=== PATIENT | male | born 1990 ===

== ENCOUNTER 2017-02-21 12:56 | Emergency (ER) | payer BC ==
[2017-02-21 13:33] VITALS: BP 124/81
--- NOTE | 2017-02-21 13:34 | UC ---
Throat Pain/Nasal Jj HPI - HPI Summary HPI Summary: 26 YEAR OLD MALE PRESENTS WITH COMPLAINS OF COUGH, POST NASAL DRIP AND SORE THROAT. - History of Current Complaint Chief Complaint: UCRespiratory Stated Complaint: COUGH, FEVER, SORE THROAT, AND LACK OF APPETITE Time Seen by Provider: 02/21/17 13:34 Hx Obtained From: Patient Onset/Duration: Gradual Onset Severity: Moderate - Allergies/Home Medications Allergies/Adverse Reactions: Allergies Allergy/AdvReac Type Severity Reaction Status Date / Time No Known Allergies Allergy Verified 07/24/14 10:47 PMH/Surg Hx/FS Hx/Imm Hx Previously Healthy: Yes - Surgical History Surgical History: Yes Surgery Procedure, Year, and Place: wisdom teeth - Social History Alcohol Use: Rare Substance Use Type: None Smoking Status (MU): Never Smoked Tobacco Review of Systems Constitutional: Negative Skin: Negative Eyes: Negative ENT: Sore Throat, Ear Ache, Nasal Discharge, Sinus Congestion, Sinus Pain/ Tenderness Respiratory: Negative Cardiovascular: Negative Gastrointestinal: Negative Genitourinary: Negative Motor: Negative Neurovascular: Negative Musculoskeletal: Negative Neurological: Negative Psychological: Negative All Other Systems Reviewed And Are Negative: Yes Physical Exam Triage Information Reviewed: Yes Appearance: Well-Appearing Vital Signs: Initial Vital Signs Temp 36.8 C 02/21/17 13:29 Pulse 80 02/21/17 13:29 Resp 18 02/21/17 13:29 BP 124/81 02/21/17 13:29 Pulse Ox 100 02/21/17 13:29 Vital Signs Reviewed: Yes Eye Exam: Normal ENT: Positive: Pharyngeal erythema, Nasal congestion, Nasal drainage Dental Exam: Normal Neck exam: Normal Neck: Positive: 1 Respiratory Exam: Normal Cardiovascular Exam: Normal Abdominal Exam: Normal Musculoskeletal Exam: Normal Neurological Exam: Normal Psychological Exam: Normal Skin Exam: Normal Throat Pain/Nasal Course/Dx - Differential Dx/Diagnosis Provider Diagnoses: COUGH. NASAL CONGESTION. POST NASAL DRIP Discharge - Discharge Plan Condition: Stable Disposition: HOME Prescriptions: Amoxicillin/Clavulanate TAB* [Augmentin TAB 875*] 875 mg PO BID #20 tab LoraTADine TAB(NF) [Claritin 10 MG TAB(NF)] 10 mg PO DAILY #30 tab guaiFENesin/CODIEN 100MG-10MG* [Robitussin AC 100Mg-10Mg*] 5 ml PO Q6H PRN #120 ml MDD 15 ML PRN Reason: Cough Patient Education Materials: Acute Cough (ED)
--- NOTE | 2017-02-21 14:10 | RAD ---
INDICATION: Cough and fever for several weeks. Vomiting. COMPARISON: July 24, 2014 TECHNIQUE: Dual energy PA and routine lateral views of the chest were obtained. REPORT: Clear lungs and pleural spaces. Negative for pneumothorax. The heart, pulmonary vasculature, and mediastinal contours are unremarkable. Negative for free air beneath the diaphragm. Unremarkable osseous structures and soft tissue contours. IMPRESSION: No evidence for acute intrathoracic disease.
== END 2017-02-21 14:43 | disposition home or self-care (01) ==
LOC: UCEAST 12:56
DX: R05 Cough (principal); R09.81 Nasal congestion; R09.82 Postnasal drip
CPT/HCPCS: 71020; 87651; 99212; G0463